=== PATIENT | female | born 1980 | race American Indian/Alaskan Native ===

== ENCOUNTER 2021-03-11 11:54 | Outpatient (CLI) | payer OTHER ==
--- NOTE | 2021-03-11 13:42 | XRay Report ---
LEFT KNEE HISTORY: Pain. COMPARISON: None. TECHNIQUE: 3 views of the left knee obtained. FINDINGS: Bones: No fracture or dislocation. Joint spaces: Maintained. Soft tissues: No significant abnormality. Additional findings: None. IMPRESSION: Normal left knee radiographs. Signer Name: Matt Quinones MD Signed: 03/11/2021 1:38 PM Workstation Name: [id number]
--- NOTE | 2021-03-11 14:22 | XRay Report ---
LEFT HIP HISTORY: Pain. COMPARISON: None. TECHNIQUE: 2 views of the right hip obtained. FINDINGS: Bones: No fracture or dislocation. Joint spaces: Maintained. Soft tissues: No significant abnormality. Additional findings: None. IMPRESSION: Unremarkable left hip radiographs. No acute osseous injury or significant degenerative change. Signer Name: Matt Quinones MD Signed: 03/11/2021 2:17 PM Workstation Name: [id number]
== END 2021-03-11 11:55 | disposition home or self-care (01) ==
LOC: XRAY 11:54
PROVIDERS: ATTEND Internal Medicine
DX: M25.562 Pain in left knee (principal); M25.552 Pain in left hip